=== PATIENT | female | born 2000 | race Caucasian/White ===

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

== ENCOUNTER 2019-06-23 03:46 | Emergency (ER) | payer BC, OTHER ==
[~2019-06-23] VITALS: Ht 162.6 cm; Wt 47.6 kg
[2019-06-23] MEDS ORDERED: LORAZEPAM 0.5 MG TABLET PO ONE (04:30)
[2019-06-23] MEDS ORDERED: NEOMY/BACITRA/POLYMYXIN B OINT UD PACKET TP ONE ×2 (04:30→04:36)
[2019-06-23] MEDS ORDERED: LORAZEPAM 1 MG TABLET ONE (04:36)
--- NOTE | 2019-06-23 04:42 | NUR ---
Patient discharged to home in stable conditon. Written and verbal after care instructions given. Patient verbalizes understanding of instructions. Patient self ambulatory with steady gait. patient personal belongings taken with patient along with exit care package. Patient friend at bedside and consent to driving the patient home. patient denied any pain/discomfort prior to discharge,
[2019-06-23 04:52] VITALS: BP 116/75
== END 2019-06-23 04:40 | disposition home or self-care (01) ==
LOC: ER 03:48
DX: F41.0 Panic disorder [episodic paroxysmal anxiety] (principal); L81.8 Other specified disorders of pigmentation; J45.909 Unspecified asthma, uncomplicated; E03.9 Hypothyroidism, unspecified
CPT/HCPCS: A4663

== ENCOUNTER 2023-09-25 01:16 | Emergency (ER) | payer BC, MEDICAID, OTHER | END 2023-09-25 02:15 | disposition left against medical advice (07) | LOC: ER 01:25 | DX: Z53.21 Procedure and treatment not carried out due to patient leaving prior to being seen by health care provider (principal) ==